=== PATIENT | female | born 1950 | race Two or more races ===

== ENCOUNTER 2023-12-28 16:04 | Outpatient (CLI) | payer OTHER | END 2023-12-28 16:25 | disposition home or self-care (01) | LOC: RAD 16:04 | PROVIDERS: ATTEND Surgery | DX: K59.09 Other constipation (principal) ==

== ENCOUNTER 2024-03-14 10:30 | Inpatient (IN) | payer OTHER ==
[~2024-03-14] VITALS: Ht 149.9 cm; Wt 56.7 kg
[2024-03-14] MEDS ORDERED: GRALISE600 MG PO (12:39)
[2024-03-14] MEDS ORDERED: ALPRAZOLAM ODT2 MG PO (12:39)
[2024-03-14] MEDS ORDERED: VASOFLEX D1 CA1 EACH PO (12:40)
[2024-03-18] MEDS ORDERED: RESTORIL30 MG (13:14)
[2024-03-18] MEDS ORDERED: FAMOTIDINE20 MG (13:14)
[2024-03-18] MEDS ORDERED: CEFTRIAXONE SODIUM 2,000 MG VIAL IJ ONE (17:00)
[2024-03-18] MEDS ORDERED: BUPIVACAINE HCL 30 ML VIAL IJ ONE (17:00)
[2024-03-18] MEDS ORDERED: METRONIDAZOLE/SODIUM CHLORIDE 500 MG/100 ML PIGGYBACK IV ONE (17:00)
[2024-03-18] MEDS ORDERED: LIDOCAINE HCL 1%/EPINEPHRINE 20ML VIAL IJ ONE (17:00)
[2024-03-18] MEDS ORDERED: MORPHINE SULFATE 4 MG/ML VIAL IV ONE ×2 (18:25→18:40)
[2024-03-18] MEDS ORDERED: RINGERS SOLUTION,LACTATED 1,000 ML IV SCH (18:45)
[2024-03-18] MEDS ORDERED: OxyCODONE HCL 5 MG TABLET (ROXICODONE) PO PRN (18:45)
[2024-03-18] MEDS ORDERED: ONDANSETRON HCL 2 MG/ML VIAL IV PRN (18:45)
[2024-03-18] MEDS ORDERED: MORPHINE SULFATE 4 MG/ML CARTRIDGE IV PRN (18:45)
[2024-03-18] MEDS ORDERED: DEXTROSE 50 % IN WATER 0.5 G/ML DISP.SYRIN IV PRN (18:45)
[2024-03-18 19:40] LABS: HEMATOCRIT 35.5 % (36.0-45.00); HEMOGLOBIN 11.5 g/dL (12.0-15.00); MEAN CELL VOLUME 91.7 fL (80.00-100.00); MEAN CORPUSCULAR HEMOGLOBIN 29.8 pg (27.00-32.0); MEAN CORPUSCULAR HGB CONC 32.5 g/dl (32.0-36.0); PLATELET COUNT 184 K/uL (150-450); RED BLOOD COUNT 3.88 M/uL (4.00-6.00)
[2024-03-18] MEDS ORDERED: ACETAMINOPHEN 500 MG GEL..CAP PO SCH (20:00)
[2024-03-18] MEDS ORDERED: FAMOTIDINE/PF 20 MG/2 ML VIAL IV PUSH SCH (21:00)
[2024-03-18 21:56] VITALS: BP 128/77; O2SAT 90
[2024-03-19 00:41] VITALS: BP 109/66; O2SAT 96
[2024-03-19] MEDS ORDERED: GABAPENTIN 300 MG CAPSULE PO SCH (01:00)
[2024-03-19] MEDS ORDERED: METOCLOPRAMIDE HCL 5 MG/ML VIAL IV SCH (01:00)
[2024-03-19 06:51] LABS: HEMATOCRIT 35.2 % (36.0-45.00); HEMOGLOBIN 12.1 g/dL (12.0-15.00); MEAN CELL VOLUME 89.9 fL (80.00-100.00); MEAN CORPUSCULAR HGB CONC 34.5 g/dl (32.0-36.0); PLATELET COUNT 163 K/uL (150-450); RED BLOOD COUNT 3.91 M/uL (4.00-6.00); RED CELL DISTRIBUTION WIDTH 13.5 % (11.5-14.5)
[2024-03-19 07:56] LABS: ALBUMIN 2.6 gm/dL (3.4-5.0); CALCIUM 8.1 mg/dL (8.5-10.1); CREATININE SERUM 0.79 mg/dL (0.55-1.02); GFR 71.14; MAGNESIUM 1.5 mg/dL (1.8-2.4); PHOSPHOROUS 3.6 mg/dL (2.5-4.9); POTASSIUM 4.2 mEq/L (3.5-5.1)
[2024-03-19 08:00] VITALS: BP 94/45; O2SAT 97
[2024-03-19] MEDS ORDERED: LACTOBACILLUS ACIDOPHILUS 1 CAP CAP PO SCH (09:00)
[2024-03-19] MEDS ORDERED: HYOSCYAMINE SULFATE 0.125 MG TAB.SUBL SL SCH (09:00)
[2024-03-19 16:00] VITALS: BP 115/76; O2SAT 98
[2024-03-19] MEDS ORDERED: POLYETHYLENE GLYCOL 3350 17 GM BLIST.PACK PO SCH (17:00)
[2024-03-19] MEDS ORDERED: ENOXAPARIN SODIUM 40 MG/0.4 ML SYRINGE SUBCUTANEO SCH (17:00)
[2024-03-20 00:49] VITALS: BP 114/70; O2SAT 100
[2024-03-20 08:00] VITALS: BP 131/82; O2SAT 98
[2024-03-20] MEDS ORDERED: ENOXAPARIN SODIUM 40 MG/0.4 ML SYRINGE SUBCUTANEO SCH (09:00)
[2024-03-20] MEDS ORDERED: LEVSIN/SL0.125 MG SL (11:25)
[2024-03-20] MEDS ORDERED: INTESTINEX680 M2 PO (11:27)
[2024-03-20] MEDS ORDERED: PAIN RELIEVER500 M2 PO (11:30)
[2024-03-20] MEDS ORDERED: NEURONTIN300 MG PO (11:31)
== END 2024-03-20 13:22 | disposition home or self-care (01) | DRG 331 ==
LOC: O/R 03-18 08:54 → SURH 03-18 10:30 → SURG 03-18 18:51
PROVIDERS: ADMIT Surgery; ATTEND Surgery
PROC: 0DNW4ZZ Release Peritoneum, Percutaneous Endoscopic Approach (ICD-10-PCS; 2024-03-18)
PROC: 0DBP4ZZ Excision of Rectum, Percutaneous Endoscopic Approach (ICD-10-PCS; 2024-03-18)
PROC: 0DJD8ZZ Inspection of Lower Intestinal Tract, Via Natural or Artificial Opening Endoscopic (ICD-10-PCS; 2024-03-18)
PROC: 0DTN4ZZ Resection of Sigmoid Colon, Percutaneous Endoscopic Approach (ICD-10-PCS; principal; 2024-03-18 16:30)
DX: K56.50 Intestinal adhesions [bands], unspecified as to partial versus complete obstruction (principal); N73.6 Female pelvic peritoneal adhesions (postinfective); K62.4 Stenosis of anus and rectum; K56.41 Fecal impaction; K57.30 Diverticulosis of large intestine without perforation or abscess without bleeding